=== PATIENT | male | born 1950 | race Caucasian/White ===

== ENCOUNTER 2017-11-29 12:13 | Emergency (ER) | payer MEDICARE, OTHER ==
[~2017-11-29] VITALS: Ht 167.6 cm; Wt 81.7 kg
[~2017-11-29 12:13] MED LIST: ALPRAZOLAM PO; ALPRAZOLAM1 M1 PO; ASA81BEC PO; ATORVASTATIN CA40 MG PO; BRILINTA90 MG PO; COLACE100 MG PO; CRESTOR5 MG PO; EFFIENT10 MG PO; ENDUR-ACIN500 MG PO; HYDROCODON-ACE1 EAC7 PO; HYDROCODONE-AP1 EAC6 PO; IMDUR 30 MG TAB30 M1 PO; IMDUR PO; KLONOPIN1 MG PO; LIPITOR 20 MG T20 M1 PO; LUMIGAN2.5 M1; MEDROLDOSEPACK PO; MIRALAX17 G1 PO; NAPROSYN500 MG PO; NEURONTIN 300M300 M2 PO; NITROGLYCERIN0.4 MG SUBLING; PAXIL20 MG PO; PERCOCET 5-3251 EACH PO; PERCOCET PO; PLAVIX 75 MG TA75 M1 PO; PREDNISONE 10 M10 MG PO; PRILOSEC40 MG PO; PROTONIX40 M2 PO; RANEXA500 MG PO; REMERON15 MG PO; TOPROL XL25 MG PO; VALIUM5 MG PO; VALPROIC ACID250 MG PO; VISTARIL 25 MG25 M1 PO; ZOCOR40 MG PO; ZPAK PO
[2017-11-29 12:23] VITALS: BP 127/80
[2017-11-29] MEDS ORDERED: XANAX 0.25 MG0.25 MG PO (12:25)
[2017-11-29] MEDS ORDERED: BRILINTA60 MG PO (12:26)
== END 2017-11-29 13:22 | disposition home or self-care (01) ==
LOC: M.ERS 12:13
DX: R04.0 Epistaxis (principal); Z95.5 Presence of coronary angioplasty implant and graft; Z98.890 Other specified postprocedural states

== ENCOUNTER 2017-11-30 21:04 | Emergency (ER) | payer MEDICARE, OTHER ==
[~2017-11-30] VITALS: Ht 167.6 cm; Wt 81.7 kg
[~2017-11-30 21:04] MED LIST changes: +BRILINTA60 MG PO; +XANAX 0.25 MG0.25 MG PO
[2017-11-30 22:44] VITALS: BP 148/78
== END 2017-11-30 22:44 | disposition home or self-care (01) ==
LOC: M.ERS 21:04
DX: R04.0 Epistaxis (principal); Z96.612 Presence of left artificial shoulder joint; Z96.611 Presence of right artificial shoulder joint; Z95.5 Presence of coronary angioplasty implant and graft; Z98.890 Other specified postprocedural states

== ENCOUNTER 2018-05-10 13:47 | Inpatient (IN) | payer MEDICARE, OTHER ==
[~2018-05-10] VITALS: Ht 170.2 cm; Wt 81.6 kg
[2018-05-10 13:50] VITALS: BP 146/69
[2018-05-10] MEDS ORDERED: PLAVIX 75 MG TA75 M1 PO (14:00)
[2018-05-10 14:36] LABS: ABSOLUTE BASOPHILS 0.1 thou/uL (0.0-0.2); ABSOLUTE EOSINOPHILS 0.4 thou/uL (0.0-0.7); ABSOLUTE LYMPHOCYTES 1.1 thou/uL (0.8-5.3); ABSOLUTE MONOCYTES 0.5 thou/uL (0.0-1.2); ABSOLUTE NEUTROPHILS 3.7 thou/uL (1.6-8.1); BASOPHILS 1.4 %; EOSINOPHILS 6.3 %; HEMATOCRIT 36.9 % (42.0-52.0); HEMOGLOBIN 12.3 gm/dL (14.0-18.0); LYMPHOCYTES 19.2 %; MCH 28.1 pg (26.0-34.0); MCHC 33.3 g/dL (28.0-37.0); MCV 84.4 fL (80.0-100.0); MONOCYTES 9.2 %; MPV 7.2 fl. (7.2-11.1); NUCLEATED RBCS 0 /100WBC; PLATELET COUNT* 372 thou/uL (150-400); POLYS 63.9 %; RBC 4.37 mil/uL (4.50-6.00); RDW-CV 14.8 % (10.5-14.5); WBC 5.8 thou/uL (4.0-11.0)
[2018-05-10 14:39] LABS: CALCIUM 9.7 mg/dL (8.5-10.1); CREATININE 1.1 mg/dL (0.6-1.3); POTASSIUM 4.8 mmol/L (3.5-5.1)
[2018-05-10 14:50] LABS: ALBUMIN 3.4 g/dL (3.4-5.0); TOTAL BILIRUBIN 0.5 mg/dL (<0.1-1.0); TOTAL PROTEIN 7.3 g/dL (6.4-8.2)
[2018-05-10 16:58] VITALS: BP 161/68
[2018-05-10 17:15] VITALS: BP 145/76
--- NOTE | 2018-05-10 18:55 | NUR ---
RECEIVED REPORT FROM FLOR IN ER. PT ARRIVED ON TELE FLOOR AROUND 1715, ASSUMED CARE. PT A&O X4. VSS. O2 SAT 99% ON RA. DISTILLERY MANAGER PLACED TRACING SB WITH FIRST DEGREE AV BLOCK. ADMISSION ASSESSMENT, EDUCATION, AND HISTORY COMPLETED CHARTED. PT REPORTS BACK PAIN AT 5/10, STATES HE RECEIVED FENTANYL IN THE ER AND THAT PAIN IS "TOLERABLE"; PT DENIES NEED FOR FURTHER INTERVENTION FOR PAIN AT THIS TIME. PT ORIENTED TO ROOM, BED AND CALL LIGHT. PT VOIDING PER URINAL. PT REPORTS RECENT FALL YESTERDAY DUE TO DIZZINESS - HIGH FALL RISK PRECAUTIONS IN PLACE. PT CURENTLY RESTING IN BED. HOURLY ROUNDING PERFORMED. CALL LIGHT IS WITHIN REACH. WCTM FOR DURATIN OF SHIFT.
[2018-05-10 20:34] VITALS: BP 121/66
--- NOTE | 2018-05-10 22:38 | NUR ---
placed call to cardiology answering service, Dr. Savage to return call for routine cardiology consult on this patient
[2018-05-11] VITALS (7 sets, daily range): BP systolic 85–139; BP diastolic 50–69
--- NOTE | 2018-05-11 05:52 | NUR ---
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
--- NOTE | 2018-05-11 05:56 | NUR ---
THIS NURSE ASSUMES CARE 05/10/18, AT 1930, PT IS A&OX4, PLEASANT MOOD, PT MEDICATED FOR BACK PAIN AT HS, ALL HOME MEDS RESUMED, CARDIOLOGY CONSULT CALLED, PT IS NPO, PT DENIES ANY FURTHER CHEST AZAEL NTHIS SHIFT, TRACING SINUS THOMAS WITH 1ST DEG AV BLOCK ON CARDIAC MONITORING, PT CONTINUES TO HAVE EDEMA TO HIS LEFT HAND, DENIES PAIN IN THIS AREA, PT HAS A LARGE AMOUNT OF BRUISING TO HIS UPPER EXTREMITIES, CONTINEUS ON ROOM AIR, PT RESTING QUIETLY IN BED AT THIS TIME, CALL LIGHT WITHIN REACH, NO S/S ACUTE DISTRESS
--- NOTE | 2018-05-11 10:25 | NUR ---
ASSUMED PT CARE AT 0700 PT IS ALERT AND ORIENTED X 4 PT IS ANXIOUS PT C/O PAIN DENIES SOA PAGED PHYSICIAN FOR ORDER FOR PAIN MEDS AWAITING CALL BACK, PT IS UP WITH SBA PT IS A FALL RISK BED ALARM IS ON, PT IS SB ON THE MONITOR PT IS NPO AWAITING CARDIOLOGY WILL CONTINUE TO MONITOR
--- NOTE | 2018-05-11 12:04 | EKG ---
[place] [address] ELECTROCARDIOGRAM REPORT Name: DARWIN PADILLA Room: [address] IN [facility]#: [id number] Admission: 05/10/18 Attend Phys: Delmis Duarte Discharge: Date of : 48 Report #: [id number] THIS REPORT FOR: //name// 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: : 1950 Requested By: Meron Galarza Order Number: [id number] MD: Perez Savage Measurements Intervals [place] Rate: 52 P: AR: QRS: 27 QRSD: 110 T: 58 QT: 459 QTc: 427 Interpretive Statements sinus ines Borderline low voltage, extremity leads Compared to ECG 08/17/2017 08:10:55 Junctional rhythm now present Sinus rhythm no longer present First degree AV block no longer present Myocardial infarct finding no longer present Electronically Signed On 05-11-2018 12:04:00 CDT by Perez Savage [email or web address] <ELECTRONICALLY SIGNED> By: Perez Savage MD, FAC 05/11/18 1204 1351 1351 Perez Savage MD, [facility] /EPI
[2018-05-12 04:00] VITALS: BP 132/65
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
[2018-05-12 08:00] VITALS: BP 140/62
--- NOTE | 2018-05-12 10:46 | NUR ---
ASSUMED RESPONSIBILITY OF PT THIS AM PT IS ALERT AND ORIENTED TREMORS NOTED STRESS TEST TO BE DONE AT 1500 TODAY DENIES ANY PAIN AT THIS TIME CALL LIGHT IN REACH UP SBA
[2018-05-12 12:49] VITALS: BP 130/64
--- NOTE | 2018-05-12 13:30 | NUR ---
MET WITH PT TO DISCUSS HOME SITUATION/DC PLANNING. PT LIVES WITH SPOUSE AND GRANDSON. HE STATES HIS HAS END-STAGE COPD, GRANDSON ASSISTS WITH HER CARE. PT IS NORMALLY INDEPENDENT AND ACTIVE. USES NO EQUIPMENT. HE PLANS TO RETURN HOME AT DC. DENIES NEEDS.
--- NOTE | 2018-05-12 18:13 | NUR ---
PT TO BE DISCHARGED WITH HOME MEDS PER DR LOERA VIA TELEPHONE ORDER BETA TAMIKO METOPROLOL TO STAY DISCONTINUED CV DR HA IS OKAY WITH PT DISCHARGING D/T STRESS TEST NEGATIVE IV DISCONTINUED WAITING ON CHART TO GET BACK FROM STRESS TESTING IT NEVER CAME BACK THEN WILL DC PATIENT
--- NOTE | 2018-05-12 19:18 | CARDNUC ---
[place] [address] CARDIAC NUCLEAR IMAGING REPORT Name: DARWIN PADILLA Room: [address]#: [id number] Admission: 05/10/18 Attend Phys: Yamil Ayoub Discharge: 05/12/18 Date of : 48 Date of Service: 05/12/181917 Report #: [id number] THIS REPORT FOR: //name// APPROVED REPORT Study performed: 05/11/2018 11:24:00 Indication: Chest pain, bradycardia, near syncope Patient Location: In-Patient Room #: 233 Stress Tech: Keisha Sibley Stress Nurse: Marianne Quezada RN Ht: 5 ft 7 in Wt: 180 lbs BSA: 1.93 m2 BMI: 28.18 Medical History Medical History: CAD s/p PA, CAD s/p stent, PAD, HTN, Hyperlipidemia Medications: atorvastatin, metoprolol, asa, plavix Allergies: No known drug allergies Cardiac Risk Factors: Age, HTN, Hyperlipidemia, PVD Previous Cardiac Procedures: PCI, Myocardial infarction Exercise History: Sedentary Meds Held (24 hrs): metoprolol Resting Data Rest SPECT myocardial perfusion imaging was performed in supine position 45 minutes following the intravenous injection of 11.6 mCi of Tc-99m Sestamibi. Time of rest injection: 1400 Date: 05/12/2018 The images were gated to evaluate regional wall motion and calculate left ventricular ejection fraction. Administration Route: IV Administration Site: Right AC Pharmacologic Stress Pharmacologic stress test was performed by injecting Regadenoson 0.4 mg IV push over 10-15 seconds immediately followed by the intravenous injection of 32.8 mCi of Tc-99m Sestamibi. Time of stress injection: 1600 Date: 05/12/2018 Administration Route: IV Administration Site: Right AC Gated Stress SPECT was performed 45 minutes [place] [address] CARDIAC NUCLEAR IMAGING REPORT Name: DARWIN PADILLA Room: [address]#: [id number] Admission: 05/10/18 Attend Phys: Yamil Ayoub Discharge: 05/12/18 Date of : 48 Date of Service: 05/12/18 191 Report #: [id number] The images were gated to evaluate regional wall motion and calculate left ventricular ejection fraction. Stress Test Details Stress Test: Pharmacologic stress testing performed using 0.4 mg of regadenoson per 5 mL given IV over 10 seconds. Reason for pharmacologic stress test: physical limitation. HR Max Heart Rate (APMHR): 151 bpm Resting HR: 57 bpm Target HR (85% APMHR): 128 bpm Max HR Achieved: 71 bpm % of APMHR: 47 Recovery HR: 66 bpm BP Resting BP: 142/76 mmHg Recovery BP: 148/64 mmHg ECG Resting ECG: Sinus Rhythm Stress ECG: Sinus Rhythm ST Change: None Arrhythmia: None Recovery ECG: Sinus Rhythm Recovery ST Change: None Recovery Arrhythmia: None Clinical Reason for Termination: Completed protocol Stress Symptoms: None Exercise duration: 0 min sec Exercise capacity: 1.0 METs The patient had no significant symptoms with Lexiscan infusion. Stress ECG Conclusion The baseline EKG show sinus rhythm without significant ST or T wave abnormality. EKGs obtained during and post Lexiscan infusion show sinus rhythm with no significant ST or T wave changes when compared to baseline. There were no stress-induced arrhythmias. Study Quality Study: Good Artifact: No [place] [address] CARDIAC NUCLEAR IMAGING REPORT Name: DARWIN PADILLA Room: [address]#: [id number] Admission: 05/10/18 Attend Phys: Yamil Ayoub Discharge: 05/12/18 Date of : 48 Date of Service: 05/12/18 1918 Report #: [id number] At rest, the left ventricular ejection fraction was 60%.. Post stress, the left ventricular ejection was 53%.. TID = 1.13. Perfusion Perfusion images show a moderate size severe intensity defect involving the basal to mid inferior wall consistent with prior infarct. No reversible defects were identified. Wall Motion Gated images show akinesis of the inferior wall. Overall left ventricular systolic function appears fairly well-preserved. Nuclear Conclusion ECG Findings: negative for ischemia Clinical Findings: negative for ischemia Nuclear Findings: negative for ischemia Exercise Capacity: not assessed Left Ventricular Function: abnormal Risk Study: low Myocardial perfusion images suggest prior infarct of the inferior wall. There were no reversible defects to suggest ongoing ischemia. Left ventricular systolic function appears mildly diminished. This is not a high risk study. <Conclusion> The baseline EKG show sinus rhythm without significant ST or T wave abnormality. EKGs obtained during and post Lexiscan infusion show sinus rhythm with no significant ST or T wave changes when compared to baseline. There were no stress-induced arrhythmias. <ELECTRONICALLY SIGNED> By: Maxim Diego MD, FACC 05/12/181917 17 17 Maxim Diego MD, FACC /INF
--- NOTE | 2018-05-29 10:52 | CON ---
[address] [address] CONSULTATION Name: DARWIN PADILLA Tavo Room: [address] IN .R.#: [id number] Admission: 05/10/18 Attend Phys: Delmis Duarte Discharge: 05/12/18 Date of : 48 Report #: [id number] THIS REPORT FOR: //name// CC: LEE physician/PCP Yamil Ayoub INPATIENT CONSULTATION TRANSPORTATION MAINTENANCE WORKER: Dr. Jasiel Peguero. CHIEF COMPLAINT: Weakness and presyncope. HISTORY OF PRESENT ILLNESS: The patient is a 68-year-old man with a history of prior coronary artery disease and PCI over a year ago, presents with increasing exertional chest pressure and tightness, which is only mild in severity. The real reason he came into the hospital though as he has been dizzy and lightheaded and actually passed out briefly yesterday. His symptoms were not preceded with palpitations or heart racing. He denies neuro symptoms of slurred speech, numbness, visual changes or extremity numbness and weakness. He presented with a sinus bradycardia and overnight, his heart rates have been in the low 50s. His cardiac troponin levels are normal and his ECG did not show any acute ST segment changes. He has been compliant with his Plavix therapy. He was scheduled to have an outpatient echocardiogram earlier this month, but had to reschedule. He has a known history of carotid stenosis, but this has not really increased in severity on recent Dopplers and is not in the severe range. PAST MEDICAL HISTORY: Coronary artery disease, status post PCI to his mid-distal right coronary artery, 08/16/2017, normal LV function was noted. This was noted to be in-stent restenosis. Asymptomatic carotid stenosis, hypertension, hyperlipidemia, PTSD. PAST SURGICAL HISTORY: Prior back surgery, PCI as noted above, knee surgeries, initial PCI in 2009. SOCIAL HISTORY: He is a nonsmoker. He does not drink. ALLERGIES: He has no known drug allergies. HOME MEDICATIONS: Aspirin, Plavix, metoprolol 50 mg daily, baby aspirin [address] [place] [address] CONSULTATION Name: DARWIN PADILLA Room: [address]#: [id number] Admission: 05/10/18 Attend Phys: Delmis Duarte Discharge: 05/12/18 Date of : 48 Report #: [id number] daily, hydroxyzine p.r.n., alprazolam p.r.n., Protonix 40 mg daily. REVIEW OF SYSTEMS: GASTROINTESTINAL: No nausea or vomiting. No hematemesis or melena. GENITOURINARY: No dysuria or hematuria. CARDIOVASCULAR: Positive chest discomfort, no dyspnea, no orthopnea. Mild peripheral edema. NEUROLOGIC: Denies headaches, blurry vision, slurred speech, numbness or visual changes. EYES: Denies any blurred vision or loss of vision. THROAT: Denies any dysphagia. PULMONARY: No wheezing or cough. GENERAL: No fevers or chills. SKIN: No rashes. PHYSICAL EXAMINATION: VITAL SIGNS: Blood pressure this morning is 118/54, pulse is 48 and in sinus rhythm, temperature is 36.6. GENERAL: This is a pleasant elderly male who is alert, oriented, in no apparent distress. NECK: Supple. No jugular venous distention. CARDIOVASCULAR: Regular. I could not hear a murmur. LUNGS: Clear to auscultation. ABDOMEN: Soft, nontender. EXTREMITIES: There is no peripheral edema. SKIN: Warm and dry. LABORATORY DATA: Electrocardiogram shows sinus bradycardia with nonspecific T-wave abnormalities. Cardiac troponin level is 0.06 x 3 sets. Hemoglobin is 12.3. Sodium is 132, potassium 4.8, BUN is 33, creatinine is 1.1, AST is , ALT is 16, alkaline phosphatase 146. Troponin I is 0.06 x 3 sets. BNP is 1609. IMPRESSION AND PLAN: 1. Syncope. I suspect this is related to bradycardia and hypotension. We will discontinue his beta margy therapy. 2. Coronary artery disease. He is having some angina type symptoms, so we will evaluate him with a stress test tomorrow. 3. Hyperlipidemia. We will continue with statin therapy. 4. Coronary artery disease, status post percutaneous coronary intervention. I would like to continue with Plavix. <ELECTRONICALLY SIGNED> By: Perez Savage MD, FACC 05/29/18 1052 1114 [id number] Savage MD, FACC /nt
== END 2018-05-12 18:51 | disposition home or self-care (01) | DRG 315 ==
LOC: M.ERS 13:47 → M.2W 16:18 → M.TBA-ER 16:18 → M.2W 17:28
PROVIDERS: Personal Emergency Response Attendant; ADMIT Internal Medicine
DX: I95.9 Hypotension, unspecified (principal); E87.1 Hypo-osmolality and hyponatremia; R00.1 Bradycardia, unspecified; I25.119 Atherosclerotic heart disease of native coronary artery with unspecified angina pectoris; F41.9 Anxiety disorder, unspecified; I65.29 Occlusion and stenosis of unspecified carotid artery; I25.2 Old myocardial infarction; F43.10 Post-traumatic stress disorder, unspecified; E78.5 Hyperlipidemia, unspecified; Z96.612 Presence of left artificial shoulder joint; Z96.611 Presence of right artificial shoulder joint; Z95.5 Presence of coronary angioplasty implant and graft; Z79.82 Long term (current) use of aspirin; Z79.899 Other long term (current) drug therapy; Z87.891 Personal history of nicotine dependence; Z82.49 Family history of ischemic heart disease and other diseases of the circulatory system

== ENCOUNTER 2018-06-02 16:31 | Inpatient (IN) | payer MEDICARE, OTHER ==
[~2018-06-02] VITALS: Ht 167.6 cm; Wt 77.1 kg
[2018-06-02 16:47] VITALS: BP 116/77
[2018-06-02 17:37] LABS: MCH 27.6 pg (26.0-34.0); MPV 7.1 fl. (7.2-11.1); NUCLEATED RBCS 0 /100WBC
[2018-06-02 17:38] LABS: HEMOGLOBIN 11.8 gm/dL (14.0-18.0); MCHC 32.7 g/dL (28.0-37.0); MCV 84.4 fL (80.0-100.0); PLATELET COUNT* 258 thou/uL (150-400); RBC 4.27 mil/uL (4.50-6.00); RDW-CV 15.5 % (10.5-14.5); WBC 7.9 thou/uL (4.0-11.0)
[2018-06-02 17:46] LABS: ANION GAP 8 mmol/L (7-16); BUN 22 mg/dL (7-18); CALCIUM 8.2 mg/dL (8.5-10.1); CHLORIDE 104 mmol/L (98-107); CO2 25 mmol/L (21-32); CREATININE 1.3 mg/dL (0.6-1.3); GLUCOSE 86 mg/dL (70-99); SODIUM 137 mmol/L (136-145)
[2018-06-02 17:47] LABS: PROTIME 10.2 Seconds (9.20-11.50)
[2018-06-02 17:57] LABS: ALBUMIN 3.7 g/dL (3.4-5.0); ALKALINE PHOSPHATASE 98 U/L (46-116); NT-PRO BRAIN NAT PEPTIDE 2151 pg/mL (<300); SGOT 39 U/L (15-37); SGPT 27 U/L (30-65); TOTAL BILIRUBIN 0.6 mg/dL (<0.1-1.0); TOTAL PROTEIN 6.7 g/dL (6.4-8.2); TROPONIN-I LEVEL <0.06 ng/mL (<0.06)
[2018-06-02 18:13] LABS: ABSOLUTE BASOPHILS 0.1 thou/uL (0.0-0.2); ABSOLUTE EOSINOPHILS 0.2 thou/uL (0.0-0.7); ABSOLUTE LYMPHOCYTES 1.8 thou/uL (0.8-5.3); ABSOLUTE MONOCYTES 0.6 thou/uL (0.0-1.2); ABSOLUTE NEUTROPHILS 5.3 thou/uL (1.6-8.1); PLATELET ESTIMATE ADEQUATE
[2018-06-02 19:35] LABS: URINE BILIRUBIN NEGATIVE (Negative); URINE BLOOD NEGATIVE (Negative); URINE CLARITY CLEAR; URINE COLOR YELLOW; URINE GLUCOSE-RANDOM NEGATIVE (Negative); URINE KETONES 1+ (Negative); URINE LEUKOCYTES-REFLEX NEGATIVE (Negative); URINE NITRITE-REFLEX NEGATIVE (Negative); URINE PROTEIN NEGATIVE (Negative); URINE UROBILINOGEN 0.2 E.U./dl (0.2-1.0)
[2018-06-02 20:25] VITALS: BP 141/69
[2018-06-02 20:30] VITALS: BP 144/70
--- NOTE | 2018-06-02 20:30 | NUR ---
RECEIVED REPORT AND PT ADMITTED TO ROOM 202 PER CART. AMBULATED FROM CART TO BED WITH STEADY GAIT. DENIES LIGHTHEADNESS, DIZZINESS OR SYNCOPAL FEELING. TELEMETRY APPLIED SHOWING SR. SEE ADMISSION ASSESSMENT AND HX. WILL CONT TO MONITOR AND ASSIST NEEDED.
[2018-06-02] MEDS ORDERED: REMERON15 MG PO (22:31)
[2018-06-03] VITALS (16 sets, daily range): BP systolic 107–157; BP diastolic 47–101
--- NOTE | 2018-06-03 06:48 | NUR ---
PT STATES SLEPT 4 HR WHICH IS MORE THAN HE USUALLY GETS. HAS REMAINED IN BED, SAT ON EDGE TO URINATE. DENIES DIZZINESS. TELEMETRY SHOWING SR. NO CHANGE IN ASSESSMENT. HS GOAL OF REST AND SAFETY ACHIEVED. HOURLY ROUNDING OBSERVED.
--- NOTE | 2018-06-03 11:08 | EKG ---
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 : 1950 Requested By: Johnathan Norris Order Number: [id number] MD: Perez Savage Measurements Intervals [place] Rate: 87 P: 26 MA: 186 QRS: 25 QRSD: 112 T: -3 QT: 393 QTc: 473 Interpretive Statements Sinus rhythm Multiple ventricular premature complexes Inferior infarct, old Compared to ECG 05/10/2018 13:51:35 Ventricular premature complex(es) now present Myocardial infarct finding now present Electronically Signed On 06-03-2018 11:08:20 CDT by Perez Savage [email or web address] <ELECTRONICALLY SIGNED> By: Perez Savage MD, FAC 06/03/18 1108 1655 1655 Perez Savage MD, [facility] /EPI
--- NOTE | 2018-06-03 13:14 | 2DMMODE ---
[place] [address] 2 D/M-MODE ECHOCARDIOGRAM Name: DARWIN PADILLA Room: [address] IN [facility]#: [id number] Admission: 06/02/18 Attend Phys: Esthela Lind, Discharge: Date of : 48 Date of Service: 06/03/18 1314 Report #: [id number] THIS REPORT FOR: //name// APPROVED REPORT Study performed: 06/03/2018 10:19:31 EXAM: Comprehensive 2D, Doppler, and color-flow Echocardiogram Patient Location: In-Patient Room #: 201 Status: routine BSA: 1.87 HR: 81 bpm BP: 119/58 mmHg Rhythm: NSR Other Information Study Quality: Good Indications Near syncope, Dizziness 2D Dimensions LVEF(%): 51.48 (>50%) IVSd: 13.40 (7-11mm) LVOT Diam: 20.08 (18-24mm) LVDd: 44.53 mm PWd: 10.99 (7-11mm) Ascending Ao: 31.76 (22-36mm) LVDs: 32.88 (25-40mm) Aortic Root: 33.02 mm Wang's LVEF: 51.48 % Volumes Left Atrial Volume (Systole) LA ESV Index: 35.90 mL/m2 Aortic Valve AoV Peak Daniel.: 1.51 m/s AO Peak Gr.: 9.07 mmHg LVOT Max P.54 mmHg AO Mean Gr.: 5.08 mmHg LVOT Mean P.17 mmHg LVOT Max V: 0.80 m/s AO V2 VTI: 31.92 cm LVOT Mean V: 0.49 m/s KEVEN (VTI): 1.84 cm2 LVOT V1 VTI: 18.54 cm Mitral Valve E/A Ratio: 1.27 [place] [address] 2 D/M-MODE ECHOCARDIOGRAM Name: DARWIN PADILLA Room: [address] IN .R.#: [id number] Admission: 06/02/18 Attend Phys: Esthela Lind, Discharge: Date of : 48 Date of Service: 06/03/18 1314 Report #: [id number] MV Decel. Time: 136.75 ms MV E Max Daniel.: 0.87 m/s MV PHT: 39.66 ms MVA (PHT): 5.55 cm2 TDI E/Lateral E': 7.25 E/Medial E': 9.67 Medial E' Daniel.: 0.09 m/s Lateral E' Daniel.: 0.12 m/s Pulmonary Valve PV Peak Daniel.: 1.14 m/s PV Peak Gr.: 5.22 mmHg Tricuspid Valve RAP Estimate: 5.00 mmHg TR Peak Gr.: 33.28 mmHg RVSP: 38.28 mmHg PA Pressure: 38.28 mmHg Left Ventricle The left ventricle is normal size. inferior wall at the base is hypokinetic,moderately. Otherwise normal function . Mildl septal hypertrophy is present. Left ventricular systolic function is normal. The left ventricular ejection fraction is within the normal range. LVEF is 55-60%. Grade II - pseudonormal filling dynamics. Right Ventricle The right ventricle is normal size. The right ventricular systolic function is normal. Atria Left atrium is borderline dilated. The right atrium size is normal. Aortic Valve Mild aortic valve sclerosis. No aortic regurgitation is present. There is no aortic valvular stenosis. Mitral Valve The mitral valve is normal in structure. Trace mitral regurgitation. No evidence of mitral valve stenosis. Tricuspid Valve The tricuspid valve is normal in structure. Trace tricuspid regurgitation. Mild pulmonary hypertension[place] [address] 2 D/M-MODE ECHOCARDIOGRAM Name: PADILLADARWIN L Room: [address] [facility]#: [id number] Admission: 06/02/18 Attend Phys: Esthela Lind, Discharge: Date of : 48 Date of Service: 06/03/18 1314 Report #: [id number] The pulmonary valve is normal in structure. There is no pulmonic valvular regurgitation. Great Vessels The aortic root is normal in size. IVC is normal in size and collapses with >50% inspiration Pericardium There is no pericardial effusion. <Conclusion> LVEF is 55-60%. inferior wall at the base is hypokinetic,moderately. Otherwise normal function . Left atrium is borderline dilated. Mild aortic valve sclerosis. No aortic regurgitation is present. There is no aortic valvular stenosis. Trace mitral regurgitation. Grade II - pseudonormal filling dynamics. <ELECTRONICALLY SIGNED> By: Perez Savage MD, FACC 06/03/18 1314 13 13 Perez Savage MD, FACC /INF
--- NOTE | 2018-06-03 13:36 | NUR ---
Nutrition: Pt seen for consult of wt change. Admitted with dizziness. Pt stated he gets dizzy and passes out when he gets up; he also gets nauseated. He stated he used to weigh 190#, lost 20# in two weeks. Current wt: 170#. He stated he is hungry and eating well now. As long as he is lying down and not trying to get up and around, then he is not nauseated and can eat well. He refused any oral supplements at this time. Encouraged him to ask RN for one if he changes his mind. Regular diet ordered. Pt was anticipating lunch during our visit. Mild risk.
--- NOTE | 2018-06-03 15:31 | NUR ---
Pt is A&O. Resides at home with his . Independent. No DME. No hx of HH or SNF. Goal is home at ia. Following.
--- NOTE | 2018-06-03 16:00 | NUR ---
PT RET FROM [facility]. REPORT TAKEN FROM ETHAN.PT HAD 1 STENT PLACED. PT REC 2 VERSED 25 FENTANYL AND 8000 OF HEPARIN. HOLD FOR 2 HOURS BEFORE REMOVING FIRST 2ML OF AIR FROM RADIAL SITE. GAVE PT A BOX LUNCH. PT ON POST CATH PROTOCOL. .
--- NOTE | 2018-06-03 16:51 | EKG ---
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 : 1950 Requested By: Phil Griffin Order Number: [id number] Reading MD: Perez Savage Measurements Intervals [place] Rate: 55 P: 58 NV: 232 QRS: 25 QRSD: 111 T: 12 QT: 462 QTc: 442 Interpretive Statements Sinus rhythm Prolonged NV interval Consider inferior infarct Compared to ECG 06/02/2018 16:55:36 First degree AV block now present Ventricular premature complex(es) no longer present Myocardial infarct finding still present Electronically Signed On 06-03-2018 16:50:48 CDT by Perez Savage [email or web address] <ELECTRONICALLY SIGNED> By: Perez Savage MD, [facility] 06/03/18 1650 1615 1615 Perez Savage MD, [facility] /EPI
--- NOTE | 2018-06-03 18:04 | NUR ---
ASSUMED CARE OF PT THIS AM ASSESSED AND DOCUMENTED.SEE CHART. PT ON CARDIAC MONITER TRACING SR 1ST DEGREE HR 80.PT IS AFEBRILE. PT DOWN TO MEDICAL LEADER TODAY AND POST CATH PROTOCOL IN PLACE. PT C/O BACK PAIN X2. IV PAIN MEDICATION WAS EFFECTIVE. NEW IV PLACED IN MEDICAL LEADER INFILTRATED AND WAS REMONED. HEAT PACK APPLIED AND ARM ELEVATED. EDUCATION GIVEN ON DEMAND HOURLY ROUNDING COMPLETE.
[2018-06-04] VITALS: BP 118/64
[2018-06-04 04:00] VITALS: BP 139/73
[2018-06-04 05:00] LABS: HEMATOCRIT 39.3 % (42.0-52.0); HEMOGLOBIN 12.6 gm/dL (14.0-18.0); MCH 27.4 pg (26.0-34.0); MCHC 32.1 g/dL (28.0-37.0); MCV 85.4 fL (80.0-100.0); MPV 7.1 fl. (7.2-11.1); RBC 4.6 mil/uL (4.50-6.00); RDW-CV 15.7 % (10.5-14.5); WBC 4.9 thou/uL (4.0-11.0)
[2018-06-04 05:27] LABS: TROPONIN-I LEVEL 0.08 ng/mL (<0.06)
--- NOTE | 2018-06-04 05:42 | NUR ---
PATIENT HAS BEEN RESTING WITHOUT COMPLAINTS. NO SIGN OF DISTRESS. CONT. SR ON THE MONITOR. CATH SITE WITHOUT SXS OF INFECTION. NO SIGN OF DISTRESS.
[2018-06-04 07:59] VITALS: BP 147/85
--- NOTE | 2018-06-04 09:45 | NUR ---
ASSUMED CARE OF PT THIS AM AROUND 0715- ELECTRIC SCOOP OPERATOR IN PLACE ORDERED, TRACING SR WITH 1ST DEGREE- UPON ASSESSMENT PT NOTED TO BE RESTING IN BED- PT A&O X4- CONTINENT OF BOWEL AND BLADDER-SBA WITH TRANSFERS FOR SAFETY- LCTA, DIMINSHED IN BASES- RESP EVEN AND UN-LABORED- VSS, O2 SAT 95% ON RA- ABDOMEN SOFT/ROUND/NON-TENDER, BS X4 QUADS- PT REPORTS LAST BM 06/02/18- RIGHT RADIAL CATH INSERTION SITE C/D/I WITH DRESSING IN PLACE; NO VISBLE DRAINAGE NOTED- IV NOTED TO RIGHT AC INTACT AND SL- GOOD PO INTAKE NOTED WITH [facility]- PT EXPRESSES WISHES TO D/C HOME THIS SHIFT- DENIES ANY C/O PAIN/DISCOMFORT AT THIS TIME- CALL LIGHT AND PERSONAL BELONGINGS WITH IN REACH- HOURLY ROUNDS IN PLACE R/T SAFETY/NEEDS- ALL NEEDS MET AT THIS TIME-WCTM
[2018-06-04 10:06] VITALS: BP 147/85
[2018-06-04] MEDS ORDERED: EFFIENT10 MG PO (10:25)
[2018-06-04] MEDS ORDERED: ASA81BEC PO (10:25)
--- NOTE | 2018-06-04 12:05 | EKG ---
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: : 1950 Requested By: Phil Griffin Order Number: [id number] MD: Phil Griffin Measurements Intervals [place] Rate: 69 P: 65 IA: 218 QRS: 27 QRSD: 115 T: 2 QT: 421 QTc: 451 Interpretive Statements Sinus rhythm Atrial premature complex Borderline prolonged IA interval Nonspecific intraventricular conduction delay Borderline low voltage, extremity leads Abnormal inferior Q waves Compared to ECG 06/03/2018 16:15:36 Atrial premature complex(es) now present Intraventricular conduction delay now present rate increased Electronically Signed On 06-04-2018 12:05:06 CDT by Phil Griffin [email or web address] <ELECTRONICALLY SIGNED> By: Phil Griffin MD, [facility] 06/04/18 1205 8 8 Phil Griffin MD, [facility] /EPI
--- NOTE | 2018-06-04 12:22 | NUR ---
ORDERS RECIEVED FOR OKAY TO D/C [facility] HOME THIS SHIFT PER - IV TO RIGHT AC D/C'D ALONG WITH STAGE DRIVER PRIOR TO D/C- D/C EDUCATION/TEACHING GIVEN TO PT PRIOR TO D/C WITH ALL QUESTIONS AND CONCERNS ADDRESSED PRIOR TO D/C- WRITTEN EDUCATION ALONG WITH SCRIPTS PROVIDED TO PT PRIOR TO D/C- CATH SITE CARE COMMUNICATED, WITH VERBAL UNDERSTANDING RECIVED PER PT- BELONGINGS PACKED AND ACCOUNTED FOR PER PT- PT ESCORTED PER TECH WITH BELONGINGS VIA W/C TO VEHICLE AT 1220- NO PROBLEMS NOTED AT TIME OF D/C
--- NOTE | 2018-06-04 19:11 | CARD ---
[facility] [address] [place] [address] CARDIAC CATH REPORT Name: DARWIN PADILLA Room: [address] IN ..#: [id number] Admission: 06/02/18 Attend Phys: Esthela Lind MD Discharge: 06/04/18 Date of : 48 Report #: [id number] THIS REPORT FOR: //name// APPROVED REPORT Study performed: 06/03/2018 13:26:59 Patient Details Patient Status: In-Patient Room #: 201 The patient is a 68 year-old male Event Personnel Perez Savage Scrap Metal Processing Worker, Shannan Dave RN Petrographer, Min Mason (R) Monitor, May Holliday RTR ScrubGaby David Scrap Metal Processing Worker Procedures Performed Art Access - R radial artery Left Heart Cath w/or w/o Coronaries [facility] Place w/wo Plasty Addl BR OM 1 Indication Unstable angina Risk Factors Hypercholesterolemia Previous Procedures/Diagnoses Previous PCI Admission/Lab Medications/Medications given during procedure Heparin Unfract. Procedure Narrative The patient was brought electively to the Cardiac Catheterization Laboratory and was prepped and draped in a sterile manner. The right wrist was infiltrated with 2% Lidocaine subcutaneous anesthesia. A Slender Glidesheath sheath was inserted into the right radial artery. Coronary angiography was performed using coronary diagnostic catheters. The right coronary system was accessed and visualized with a 6 FR TIG catheter. The left coronary system was accessed and visualized with a 6FR TIG catheter. Left ventricular/Aortic Valve gradient assessed via catheter pullback. Closure device was deployed with a 6 Fr Vasc-Band Reg 24cm. The patient tolerated the procedure well and there were no complications associated with the procedure. [place] [address] CARDIAC CATH REPORT Name: DARWIN PADILLA Room: [address]#: [id number] Admission: 06/02/18 Attend Phys: Esthela Lind MD Discharge: 06/04/18 Date of : 48 Report #: [id number] Intraoperative Conscious Sedation Sedation start time: 14:14 Case end Time: 15:18 Fentanyl 25 mcg Versed 2 mg Fluoro Time: 11.8 minutes Dose: DAP 015802 cGycm2 154 mGy Contrast Type and Amount: Omnipaque 200 ml Coronary Angiography The patient's coronary anatomy is right dominant. Diagnostic Cath Left Main short ostial 30% LAD stented proximally, <10% ISR, diffuse mid body 50%, focal distal 60% Diagonal 1 40% Diagonal 2 30% Circumflex stented proximally no ISR, OM1 ostial 95%, medium caliber but long vessel OM2 large ostial 50% Right Coronary stented entirely proximal to distal , focal eccentric 50% mid body R PDA 30% RPLV 30% Left Ventriculography Left Ventriculography was not performed. Ejection Fraction was 55-60% based off patient's Echocardiogram. crossed aortic valve, no gradient , EDP was 12mmHg Hemodynamics The aortic pressure is 145/62 mmHg with a mean of 95 mmHg. The left ventricular pressure is 119/14 mmHg with a mean of mmHg. The left ventricular end diastolic pressure is 14 mmHg. There was no gradient across the aortic valve upon pullback. Pullback from the left ventricle to the aorta revealed no gradient across the aortic valve. PCI Technique Lesion Anticoagulation was achieved with Heparin. Patient was preloaded with Plavix. Percutaneous coronary intervention was performed on the first obtuse marginal branch segment. The lesion stenosis prior to intervention was 90% with TREVA 3 flow. A 6FR XB 3.0 100CM Guide Catheter was used to engage the lm ostium. A IG: [facility] [address] [place] [address] CARDIAC CATH REPORT Name: DARWIN PADILLA Room: [address]#: [id number] Admission: 06/02/18 Attend Phys: Esthela Lind MD Discharge: 06/04/18 Date of : 48 Report #: [id number] Interventional Guidewire was used to cross the lesion. BALLOON DILATION A Balloon catheter Mini Trek RX 2.0 X 8 was inserted and inflated up to 12.00atm for 14seconds. Repeat angiography revealed the following post-dilatation results: 50% stenosis. Second BMW wire was placed in the circumflex artery STENT DEPLOYMENT A drug-eluting stent Xience Alpine RX 2.25X12 was inserted and inflated up to 18.00atm for 22seconds. Repeat angiography revealed the following post-stent deployment results: 0% stenosis. Final angiography reveals 0 % stenosis with TREVA 3 flow. Conclusion 1.unstable angina 2. CAD- patent stents RCA, LAD,LCx 3. de javid 95% ostial first OM stenosis 4. successful placement of a drug eluting stent in the ostium of the first marginal branch Recommendations Cardiac Rehabilitation Referral Aggressive Medical Therapy Medications Administered Clopidogrel Diagnostic Cath Approved by: Perez Savage MD Date/Time: <ELECTRONICALLY SIGNED> By: Phil Griffin MD, FACC 06/04/181909 09 09Phil Griffin MD, FACC /INF
== END 2018-06-04 12:15 | disposition home or self-care (01) | DRG 247 ==
LOC: M.ERS 16:31 → M.2W 18:07 → M.TBA-ER 18:07 → M.2W 22:17
PROVIDERS: Family Medicine; Internal Medicine Cardiovascular Disease; ADMIT Internal Medicine
PROC: B2111ZZ Fluoroscopy of Multiple Coronary Arteries using Low Osmolar Contrast (ICD-10-PCS; principal; 2018-06-04)
PROC: 027034Z Dilation of Coronary Artery, One Artery with Drug-eluting Intraluminal Device, Percutaneous Approach (ICD-10-PCS; principal; 2018-06-04)
PROC: 4A023N7 Measurement of Cardiac Sampling and Pressure, Left Heart, Percutaneous Approach (ICD-10-PCS; principal; 2018-06-04)
DX: I25.110 Atherosclerotic heart disease of native coronary artery with unstable angina pectoris (principal); I10 Essential (primary) hypertension; G89.29 Other chronic pain; M54.9 Dorsalgia, unspecified; E78.5 Hyperlipidemia, unspecified; I65.23 Occlusion and stenosis of bilateral carotid arteries; I25.2 Old myocardial infarction; Z95.5 Presence of coronary angioplasty implant and graft; Z87.891 Personal history of nicotine dependence; Z90.49 Acquired absence of other specified parts of digestive tract; Z79.02 Long term (current) use of antithrombotics/antiplatelets; Z79.82 Long term (current) use of aspirin; Z79.899 Other long term (current) drug therapy

== ENCOUNTER 2018-07-09 14:50 | Emergency (ER) | payer MEDICARE, OTHER ==
[~2018-07-09] VITALS: Ht 167.6 cm; Wt 67.1 kg
[2018-07-09 15:37] LABS: ABSOLUTE BASOPHILS 0.1 thou/uL (0.0-0.2); ABSOLUTE EOSINOPHILS 0.1 thou/uL (0.0-0.7); ABSOLUTE LYMPHOCYTES 1.4 thou/uL (0.8-5.3); ABSOLUTE MONOCYTES 0.5 thou/uL (0.0-1.2); ABSOLUTE NEUTROPHILS 4.8 thou/uL (1.6-8.1); BASOPHILS 1.1 %; EOSINOPHILS 1.3 %; HEMOGLOBIN 12.6 gm/dL (14.0-18.0); LYMPHOCYTES 20.1 %; MCH 27.2 pg (26.0-34.0); MCHC 32.4 g/dL (28.0-37.0); MCV 83.9 fL (80.0-100.0); MONOCYTES 6.7 %; MPV 6.9 fl. (7.2-11.1); NUCLEATED RBCS 0 /100WBC; PLATELET COUNT* 289 thou/uL (150-400); POLYS 70.8 %; RBC 4.64 mil/uL (4.50-6.00); RDW-CV 15.7 % (10.5-14.5); WBC 6.8 thou/uL (4.0-11.0)
[2018-07-09 15:45] LABS: APTT 26.1 Seconds (25.0-31.3); CALCIUM 8.7 mg/dL (8.5-10.1); CREATININE 1.3 mg/dL (0.6-1.3); POTASSIUM 4.1 mmol/L (3.5-5.1); PROTIME 10.2 Seconds (9.20-11.50)
[2018-07-09 15:49] LABS: ALBUMIN 3.8 g/dL (3.4-5.0); TOTAL BILIRUBIN 0.4 mg/dL (<0.1-1.0); TOTAL PROTEIN 7.4 g/dL (6.4-8.2)
[2018-07-09] MEDS ORDERED: CYCLOBENZAPRINE5 MG PO (18:02)
[2018-07-09] MEDS ORDERED: PERCOCET PO (18:02)
[2018-07-09 18:18] VITALS: BP 129/70
== END 2018-07-09 18:20 | disposition home or self-care (01) ==
LOC: M.ERS 14:50
PROVIDERS: Nurse Practitioner Family
DX: S30.0XXA Contusion of lower back and pelvis, initial encounter (principal); S50.812A Abrasion of left forearm, initial encounter; M54.6 Pain in thoracic spine; Z90.49 Acquired absence of other specified parts of digestive tract; S09.8XXA Other specified injuries of head, initial encounter; W01.0XXA Fall on same level from slipping, tripping and stumbling without subsequent striking against object, initial encounter; Y93.89 Activity, other specified; Y92.89 Other specified places as the place of occurrence of the external cause; Y99.8 Other external cause status

== ENCOUNTER 2018-09-04 13:11 | Inpatient (IN) | payer MEDICARE, OTHER ==
[~2018-09-04] VITALS: Ht 167.6 cm; Wt 67.2 kg
--- NOTE | ~2018-09-04 | PROC ---
[address] [address] PROCEDURE REPORT Name: DARWIN PADILLA Room: [address] IN .R.#: [id number] Admission: 09/04/18 Attend Phys: Henry Frausto MD Discharge: Date of : 48 Report #: [id number] THIS REPORT FOR: //name// For GI report, Please see the Provation report in Perceptive 7 content. By: [id number] Records Staff [facility] /DASHA
--- NOTE | ~2018-09-04 | CON ---
[address] [address] CONSULTATION Name: DARWIN PADILLA Room: [address] IN ..#: [id number] Admission: 09/04/18 Attend Phys: Henry Frausto MD Discharge: Date of : 48 Report #: [id number] THIS REPORT FOR: //name// CC: Henry Reich DATE OF SERVICE: 09/05/2018 REASON FOR CONSULT: Anorexia, weight loss and nausea. HISTORY OF PRESENT ILLNESS: This is a 68-year-old male with history of weakness, poor balance, anorexia and nausea, who have lost 50 pounds in the last couple of months due to the same. The patient reports that he is unable to eat due to severe nausea. He also complains of problems with his balance and reports that he had fainted a couple of times. PAST MEDICAL HISTORY: Significant for history of what mentioned above. The patient also has history of degenerative joint disease, dyslipidemia, depression, GERD, anxiety, left knee surgery, rotator cuff surgery, appendectomy, back surgery with L5 and S1, tonsillectomy, coronary artery disease status post stenting, gallbladder disease, status post cholecystectomy, shoulder replacement, hypertension, and peripheral vascular disease. ALLERGIES: No known drug allergy. MEDICATIONS: Please refer to MAR. SOCIAL HISTORY: The patient is a former smoker, but has not smoked more than a year. He denies alcohol use. FAMILY HISTORY: Negative for GI malignancy. PHYSICAL EXAMINATION: VITAL SIGNS: Reveals blood pressure of 115/66, respirations 17, pulse 72, temperature 98.1. LUNGS: Clear. CARDIOVASCULAR: Regular. ABDOMEN: Soft, nontender, nondistended. Bowel sounds are positive. NEUROLOGIC: The patient is alert, oriented x 3. He has mild tremors in both extremities. LABORATORY DATA: Revealed sodium of 136, potassium 4.5, BUN is 11, creatinine 1.0. Liver function tests are all within normal limit except mild elevation of alkaline phosphatase to 121. INR is 1.0. WBC is 5.2 with hemoglobin of 11 and MCV of 84. Platelet is 240[place] [address] CONSULTATION Name: DARWIN PADILLA Room: [address]#: [id number] Admission: 09/04/18 Attend Phys: Henry Frausto MD Discharge: Date of : 48 Report #: [id number] IMAGING: CT of abdomen and pelvis was obtained, which showed no evidence of bowel obstruction, ileus or free air. There is a small calculi in the kidneys, unchanged from previous studies. There is also evidence of degenerative changes. ASSESSMENT AND PLAN: The patient with anorexia and weight loss. We will perform an upper endoscopy to rule out gastroduodenal ulcer or partial obstruction of the stomach. If this was negative, this may be part of his neurologic problem and we will consider a gastric emptying test. Since the patient had a colonoscopy a year ago, we do not see a need to repeat a colonoscopy at this time. By: 0928 [id number] Tolentino MD /nt
[~2018-09-04 13:11] MED LIST changes: +CYCLOBENZAPRINE5 MG PO
[2018-09-04 13:14] VITALS: BP 143/76
[2018-09-04 13:46] LABS: ABSOLUTE LYMPHOCYTES 0.8 thou/uL (0.8-5.3); ABSOLUTE MONOCYTES 0.5 thou/uL (0.0-1.2); BASOPHILS 0.6 %; EOSINOPHILS 0.3 %; HEMATOCRIT 37.5 % (42.0-52.0); HEMOGLOBIN 12.2 gm/dL (14.0-18.0); LYMPHOCYTES 11.4 %; MCH 27.3 pg (26.0-34.0); MCHC 32.6 g/dL (28.0-37.0); MCV 83.9 fL (80.0-100.0); MONOCYTES 6.3 %; MPV 6.4 fl. (7.2-11.1); NUCLEATED RBCS 0 /100WBC; PLATELET COUNT* 281 thou/uL (150-400); POLYS 81.4 %; RBC 4.47 mil/uL (4.50-6.00); RDW-CV 16.1 % (10.5-14.5); WBC 7.4 thou/uL (4.0-11.0)
[2018-09-04 13:54] LABS: ANION GAP 10 mmol/L (7-16); BUN 12 mg/dL (7-18); CALCIUM 8.8 mg/dL (8.5-10.1); CHLORIDE 97 mmol/L (98-107); CO2 25 mmol/L (21-32); CREATININE 0.9 mg/dL (0.6-1.3); GLUCOSE 108 mg/dL (70-99); POTASSIUM 4.5 mmol/L (3.5-5.1); SODIUM 132 mmol/L (136-145)
[2018-09-04 13:56] LABS: URINE BILIRUBIN NEGATIVE (Negative); URINE BLOOD NEGATIVE (Negative); URINE CLARITY CLEAR; URINE COLOR YELLOW; URINE GLUCOSE-RANDOM NEGATIVE (Negative); URINE KETONES NEGATIVE (Negative); URINE LEUKOCYTES-REFLEX NEGATIVE (Negative); URINE NITRITE-REFLEX NEGATIVE (Negative); URINE PROTEIN NEGATIVE (Negative); URINE UROBILINOGEN 0.2 E.U./dl (0.2-1.0)
[2018-09-04 14:02] LABS: ALBUMIN 3.7 g/dL (3.4-5.0); ALKALINE PHOSPHATASE 121 U/L (46-116); LIPASE 91 U/L (73-393); NT-PRO BRAIN NAT PEPTIDE 1629 pg/mL (<300); SGOT 21 U/L (15-37); SGPT 20 U/L (30-65); TOTAL BILIRUBIN 0.4 mg/dL (<0.1-1.0); TOTAL PROTEIN 6.9 g/dL (6.4-8.2); TROPONIN-I LEVEL <0.06 ng/mL (<0.06)
--- NOTE | 2018-09-04 17:34 | EKG ---
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: [facility] : 1950 Requested By: Molly Mallory Order Number: [id number] MD: Maxim Diego Measurements Intervals [place] Rate: 84 P: 41 [place]: 201 QRS: 52 QRSD: 112 T: 28 QT: 382 QTc: 452 Interpretive Statements Sinus rhythm Compared to ECG 06/04/2018 08:19:08 Atrial premature complex(es) no longer present Inferior Q waves no longer present Q waves no longer present Electronically Signed On 09-04-2018 17:34:37 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
[2018-09-04 19:47] VITALS: BP 134/67
[2018-09-04 20:45] VITALS: BP 132/70
[2018-09-05] VITALS: BP 115/66
[2018-09-05] MEDS ORDERED: NORVASC5 MG PO (02:27)
[2018-09-05 04:19] LABS: HEMATOCRIT 34.6 % (42.0-52.0); HEMOGLOBIN 11.5 gm/dL (14.0-18.0); MCH 28.2 pg (26.0-34.0); MCHC 33.2 g/dL (28.0-37.0); MCV 84.7 fL (80.0-100.0); MPV 6.7 fl. (7.2-11.1); RBC 4.08 mil/uL (4.50-6.00); RDW-CV 16.3 % (10.5-14.5); WBC 5.1 thou/uL (4.0-11.0)
[2018-09-05 04:28] LABS: CALCIUM 8.6 mg/dL (8.5-10.1); MAGNESIUM 1.8 mg/dL (1.8-2.4); POTASSIUM 4.2 mmol/L (3.5-5.1)
[2018-09-05 08:05] VITALS: BP 136/69
[2018-09-05 16:48] VITALS: BP 115/60
[2018-09-05 19:30] VITALS: BP 105/60
[2018-09-06] VITALS (7 sets, daily range): BP systolic 106–127; BP diastolic 63–76
[2018-09-06 04:49] LABS: HEMATOCRIT 33.6 % (42.0-52.0); MCH 27.8 pg (26.0-34.0); MCHC 32.9 g/dL (28.0-37.0); MCV 84.4 fL (80.0-100.0); MPV 6.7 fl. (7.2-11.1); RBC 3.98 mil/uL (4.50-6.00); RDW-CV 16.2 % (10.5-14.5); WBC 5.2 thou/uL (4.0-11.0)
[2018-09-06 05:08] LABS: CALCIUM 8.7 mg/dL (8.5-10.1); MAGNESIUM 1.8 mg/dL (1.8-2.4); PHOSPHORUS* 4.7 mg/dL (2.5-4.9); POTASSIUM 4.5 mmol/L (3.5-5.1)
[2018-09-07 00:45] VITALS: BP 115/62
[2018-09-07 04:17] VITALS: BP 120/66
[2018-09-07 04:40] LABS: CALCIUM 8.6 mg/dL (8.5-10.1); CREATININE 0.9 mg/dL (0.6-1.3); MAGNESIUM 1.9 mg/dL (1.8-2.4); POTASSIUM 4.7 mmol/L (3.5-5.1)
[2018-09-07 07:30] VITALS: BP 95/74
[2018-09-07 12:00] VITALS: BP 110/65
[2018-09-07 16:00] VITALS: BP 124/68
[2018-09-07 20:00] VITALS: BP 123/63
[2018-09-08 00:10] VITALS: BP 121/70
[2018-09-08 04:38] VITALS: BP 122/67
[2018-09-08 07:40] VITALS: BP 139/84
[2018-09-08 12:05] LABS: % FREE PSA 25.6 % (()); FREE PSA 0.23 ng/mL
[2018-09-08 19:46] VITALS: BP 105/54
[2018-09-09] VITALS (7 sets, daily range): BP systolic 90–127; BP diastolic 46–86
[2018-09-09] MEDS ORDERED: THERA M PLUS T1 EAC2 PO (10:22)
[2018-09-09] MEDS ORDERED: B12INJ SUBQ (10:22)
[2018-09-10] VITALS: BP 116/59
[2018-09-10 04:05] VITALS: BP 110/64
[2018-09-10 08:00] VITALS: BP 98/57
[2018-09-10 11:17] VITALS: BP 114/78
[2018-09-10 11:50] VITALS: BP 112/60
--- NOTE | 2018-09-13 15:44 | CON ---
[address] [address] CONSULTATION Name: DARWIN PADILLA Room: [address] IN ..#: [id number] Admission: 09/04/18 Attend Phys: Henry Frausto MD Discharge: 09/10/18 Date of : 48 Report #: [id number] THIS REPORT FOR: //name// CC: Henry Reich DATE OF SERVICE: 09/05/2018 HISTORY OF PRESENT ILLNESS: This is a 68-year-old male patient who was evaluated by me for a pretty poorly defined history. He has a posttraumatic stress disorder. He is losing weight unintentionally. He has developed some difficulty walking, some tremor. Exact duration of these symptoms is not clear but looks like it is going on at least for a few weeks. REVIEW OF SYSTEMS: Indicate that this patient has a significant amount of weight loss. He is having a lot of GI issue. He does not have much nausea and vomiting. He is going to be evaluated by GI for that. He has a history of STEMI. He has a posttraumatic stress disorder. He takes medications for that. He had a rotator cuff injury and both shoulder replacement, knee surgery, back surgery. This was his relevant 14-point review of system. PAST MEDICAL HISTORY: Negative for any stroke. FAMILY HISTORY: Noncontributory. SOCIAL HISTORY: He indicates he does not drink any alcohol. PHYSICAL EXAMINATION: Indicates he is alert, responsive, somewhat nervous and anxious. His reflexes are diminished in the lower extremities. His position sense appeared to be present. I did not make him walk. Cardiac examination is unremarkable. No respiratory difficulty was noticed. His blood pressure is 115/65, respiration is 17, pulse is 72, and temperature is 98.1. He did have a CT scan of the head, which does not show any abnormality, which can explain his symptoms. IMPRESSION: Pretty unusual symptom for which etiology is not clear. We will await the GI evaluation and see if they can find some abnormality, which can explain his symptoms. Otherwise, we need to do a workup starting with MRI of the brain, followed by EMG of both lower extremities, which may have to be done as an outpatient. RECOMMENDATION: 1. Await GI consult. 2. May do MRI here. 3. EMG [place] [address] CONSULTATION Name: DARWIN PADILLA Room: [address]#: [id number] Admission: 09/04/18 Attend Phys: Henry Frausto MD Discharge: 09/10/18 Date of : 48 Report #: [id number] 4. We will give him some thiamine. 5. Await this workup. More than 50 minutes of time was spent taking care of this patient and majority of that time was spent counseling this patient and coordinating our care. Thank you very much for this referral. <ELECTRONICALLY SIGNED> By: Tae Dueñas MD 09/13/18 1544 1336 [id number] Dueñas MD /nt
== END 2018-09-10 13:05 | disposition home health service (06) | DRG 392 ==
LOC: M.ERS 13:11 → M.3W 16:56 → M.TBA-ER 16:56 → M.3W 20:08
PROVIDERS: Nurse Practitioner; ADMIT Internal Medicine
PROC: 0DJ08ZZ Inspection of Upper Intestinal Tract, Via Natural or Artificial Opening Endoscopic (ICD-10-PCS; principal; 2018-09-06)
DX: K31.84 Gastroparesis (principal); I77.4 Celiac artery compression syndrome; E46 Unspecified protein-calorie malnutrition; I43 Cardiomyopathy in diseases classified elsewhere; R62.7 Adult failure to thrive; I11.9 Hypertensive heart disease without heart failure; Z96.612 Presence of left artificial shoulder joint; Z96.611 Presence of right artificial shoulder joint; I25.10 Atherosclerotic heart disease of native coronary artery without angina pectoris; F41.9 Anxiety disorder, unspecified; I73.9 Peripheral vascular disease, unspecified; E53.8 Deficiency of other specified B group vitamins; K44.9 Diaphragmatic hernia without obstruction or gangrene; G70.9 Myoneural disorder, unspecified; R25.1 Tremor, unspecified; I95.9 Hypotension, unspecified; R33.9 Retention of urine, unspecified; M81.0 Age-related osteoporosis without current pathological fracture; M19.90 Unspecified osteoarthritis, unspecified site; E78.5 Hyperlipidemia, unspecified; F32.9 Major depressive disorder, single episode, unspecified; K21.9 Gastro-esophageal reflux disease without esophagitis; Z90.49 Acquired absence of other specified parts of digestive tract; Z95.5 Presence of coronary angioplasty implant and graft; Z87.891 Personal history of nicotine dependence; Z68.23 Body mass index [BMI] 23.0-23.9, adult; Z79.82 Long term (current) use of aspirin; Z79.899 Other long term (current) drug therapy

== ENCOUNTER 2018-10-01 20:07 | Emergency (ER) | payer MEDICARE, OTHER ==
[~2018-10-01] VITALS: Ht 172.7 cm; Wt 63.5 kg
[~2018-10-01 20:07] MED LIST changes: +B12INJ SUBQ; +NORVASC5 MG PO; +THERA M PLUS T1 EAC2 PO
[2018-10-01 20:48] LABS: ABSOLUTE EOSINOPHILS 0.1 thou/uL (0.0-0.7); ABSOLUTE LYMPHOCYTES 1.5 thou/uL (0.8-5.3); ABSOLUTE MONOCYTES 0.5 thou/uL (0.0-1.2); ABSOLUTE NEUTROPHILS 3.4 thou/uL (1.6-8.1); BASOPHILS 0.7 %; EOSINOPHILS 1.5 %; HEMOGLOBIN 11.4 gm/dL (14.0-18.0); LYMPHOCYTES 27.5 %; MCH 27.6 pg (26.0-34.0); MCHC 32.7 g/dL (28.0-37.0); MCV 84.4 fL (80.0-100.0); MONOCYTES 8.5 %; MPV 6.7 fl. (7.2-11.1); NUCLEATED RBCS 0 /100WBC; PLATELET COUNT* 277 thou/uL (150-400); POLYS 61.8 %; RBC 4.14 mil/uL (4.50-6.00); RDW-CV 15.9 % (10.5-14.5); WBC 5.6 thou/uL (4.0-11.0)
[2018-10-01 20:56] LABS: ANION GAP 5 mmol/L (7-16); BUN 15 mg/dL (7-18); CALCIUM 8.6 mg/dL (8.5-10.1); CHLORIDE 98 mmol/L (98-107); CO2 31 mmol/L (21-32); CREATININE 0.9 mg/dL (0.6-1.3); GLUCOSE 122 mg/dL (70-99); POTASSIUM 3.3 mmol/L (3.5-5.1); SODIUM 134 mmol/L (136-145)
[2018-10-01 21:04] LABS: TROPONIN-I LEVEL <0.06 ng/mL (<0.06)
[2018-10-01 21:32] LABS: URINE BILIRUBIN NEGATIVE (Negative); URINE BLOOD 3+ (Negative); URINE CLARITY CLEAR; URINE COLOR YELLOW; URINE GLUCOSE-RANDOM NEGATIVE (Negative); URINE KETONES NEGATIVE (Negative); URINE LEUKOCYTES-REFLEX NEGATIVE (Negative); URINE NITRITE-REFLEX NEGATIVE (Negative); URINE PROTEIN NEGATIVE (Negative); URINE SPECIFIC GRAVITY <= 1.005 (1.005-1.030); URINE UROBILINOGEN 0.2 E.U./dl (0.2-1.0)
[2018-10-01 21:38] LABS: BACTERIA-REFLEX 1-9 Few /HPF (None Seen); CASTS None Seen /LPF (None Seen); CRYSTALS None Seen /LPF (None Seen); MUCUS 0-3 Light strn/LPF (None Seen); SQUAMOUS 0-3 Few /LPF (0-3); URINE WBC-REFLEX None Seen /HPF (0-5)
[2018-10-01] MEDS ORDERED: FLOMAX0.4 MG PO (22:08)
[2018-10-01] MEDS ORDERED: MACROBID 100 M100 M1 PO (22:08)
[2018-10-01 22:35] VITALS: BP 138/80
== END 2018-10-01 22:35 | disposition home or self-care (01) ==
LOC: M.ERS 20:07
PROVIDERS: Nurse Practitioner
DX: R41.0 Disorientation, unspecified (principal); R31.9 Hematuria, unspecified; I10 Essential (primary) hypertension; Z96.612 Presence of left artificial shoulder joint; Z96.611 Presence of right artificial shoulder joint; Z95.5 Presence of coronary angioplasty implant and graft; Z90.49 Acquired absence of other specified parts of digestive tract; Z96.652 Presence of left artificial knee joint